=== PATIENT | male | born 2005 | race Caucasian/White ===

== ENCOUNTER 2024-09-23 10:36 | Emergency (ER) | payer SELFPAY ==
[~2024-09-23] VITALS: Ht 175.3 cm; Wt 100.0 kg
[2024-09-23 10:38] VITALS: BP 148/78; TEMP 101.4; O2SAT 98
[2024-09-23] MEDS ORDERED: ALBU8.5H INH SA (10:46)
[2024-09-23] MEDS: IBUPROFEN 600MG TAB PO ONE (11:03)
[2024-09-23] MEDS: ACETAMINOPHEN 500 MG TAB PO ONE (11:04)
[2024-09-23] MEDS ORDERED: ZITH500T PO (11:16)
[2024-09-23] MEDS: AZITHROMYCIN 250MG TABLET PO ONE (11:20)
== END 2024-09-23 12:01 | disposition home or self-care (01) ==
LOC: M ED 10:36
DX: J02.0 Streptococcal pharyngitis (principal); J45.909 Unspecified asthma, uncomplicated; Z88.0 Allergy status to penicillin; Z79.52 Long term (current) use of systemic steroids; Z79.2 Long term (current) use of antibiotics

== ENCOUNTER 2024-10-29 12:39 | Emergency (ER) | payer SELFPAY ==
[~2024-10-29] VITALS: Ht 175.3 cm; Wt 96.6 kg
[~2024-10-29 12:39] MED LIST: ALBU8.5H INH SA; ZITH500T PO
[2024-10-29 12:41] VITALS: BP 127/66; TEMP 97.1; O2SAT 97
== END 2024-10-29 14:04 | disposition home or self-care (01) ==
LOC: M ED 12:39
DX: S93.402A Sprain of unspecified ligament of left ankle, initial encounter (principal); W00.0XXA Fall on same level due to ice and snow, initial encounter; Y92.410 Unspecified street and highway as the place of occurrence of the external cause; Y93.01 Activity, walking, marching and hiking; Y99.9 Unspecified external cause status; F17.200 Nicotine dependence, unspecified, uncomplicated; Z88.0 Allergy status to penicillin